=== PATIENT | female | born 1955 | race Caucasian/White ===

== ENCOUNTER 2017-05-21 09:08 | Day surgery (SDC) | payer OTHER ==
[2017-05-21] VITALS (7 sets, daily range): BP systolic 146–161; BP diastolic 62–74; PULSE 63–69; RESP 17–18; Ht 147.3 cm; Wt 69.0 kg
[~2017-05-21] VITALS: Ht 147.3 cm; Wt 69.0 kg
[~2017-05-21 09:08] MED LIST: CEPH-443 PO; CITROMA PO; DOCU-144 PO; LORA1TAB54 PO; MECL25TA2 PO; NAPR-688 PO; POLY17PO6 PO; PROPOFOL 200 MG INJ ONE; SIMV10TA PO
[2017-05-21] MEDS ORDERED: SOD CHLORIDE 0.9% 1,000 ML IV ONE (10:00)
[2017-05-21 10:40] LABS: BASOPHILS % 0.8 % (0.0-2.0); EOSINOPHILS # 0.1 10^3/ul (0.0-0.5); EOSINOPHILS % 1.6 % (0.0-7.0); HEMATOCRIT 38.4 % (37.0-47.0); HEMOGLOBIN 13.1 g/dl (12.0-16.0); LYMPHOCYTES # 1.4 10^3/ul (0.8-2.9); LYMPHOCYTES % 36.8 % (15.0-51.0); MEAN CORPUSCULAR HEMOGLOBIN 32.3 pg (29.0-33.0); MEAN CORPUSCULAR HGB CONC 34.1 g/dl (32.0-37.0); MEAN CORPUSCULAR VOLUME 94.8 fl (82.0-101.0); MEAN PLATELET VOLUME 9.3 fl (7.4-10.4); MONOCYTE # 0.4 10^3/ul (0.3-0.9); MONOCYTES % 11.3 % (0.0-11.0); NEUTROPHIL # 1.8 10^3/ul (1.6-7.5); NEUTROPHILS % 49.2 % (39.0-77.0); PLATELET COUNT 273 10^3/UL (140-415); RED BLOOD COUNT 4.05 10^6/ul (4.20-5.40); RED CELL DISTRIBUTION WIDTH 12.6 % (11.5-14.5); WHITE BLOOD COUNT 3.7 10^3/ul (4.8-10.8)
[2017-05-21 10:58] LABS: INR 0.93; PROTIME 12.5 Sec (12.2-14.2)
[2017-05-21 10:59] LABS: ALBUMIN 4.1 g/dl (3.3-4.9); ALBUMIN/GLOBULIN RATIO 1.17; BILIRUBIN,INDIRECT 0.4 mg/dl (0-1.1); BILIRUBIN,TOTAL 0.4 mg/dl (0.2-1.3); PARTIAL THROMBOPLASTIN TIME 28.7 Sec (25.0-35.0); TOTAL PROTEIN 7.6 g/dl (6.1-8.1)
[2017-05-21 11:04] LABS: CALCIUM 9.3 mg/dl (8.4-10.2); CREATININE 0.67 mg/dl (0.44-1.00); POTASSIUM 3.9 mmol/L (3.5-5.1)
[2017-05-21] MEDS ORDERED: PROPOFOL 20 ML ONE (12:28)
[2017-05-21] MEDS ORDERED: ONDANSETRON 4 MG INJ ONE (12:28)
[2017-05-21] MEDS ORDERED: LIDOCAINE 100 MG SYRINGE ONE (12:28)
[2017-05-21] MEDS ORDERED: FENTAnyl 50 MCG/ML VIAL ONE (12:28)
[2017-05-21] MEDS ORDERED: KETOROLAC 30 MG INJ ONE (12:29)
[2017-05-21] MEDS ORDERED: ACETAMINOPHEN 1000MG/100ML IV 100 ML ONE (12:42)
[2017-05-21] MEDS ORDERED: LIDOCAINE 2%/EPI 30 ML INJ ONE (12:49)
[2017-05-21] MEDS ORDERED: LIDOCAINE 2%/EPI MPF (SDV) 20 ML VIAL INJ ONE (12:50)
--- NOTE | 2017-05-21 14:20 | RADRPT ---
PROCEDURE: XR Chest. CLINICAL INDICATION: Shortness of breath. Breast cancer. TECHNIQUE: Single frontal view. COMPARISON: None. FINDINGS: There is a tunneled right internal jugular vein implanted port central venous catheter with the tip in the lower superior vena cava. The lungs are clear. The heart size is normal. There is no pleural effusion. There is no pneumothorax. IMPRESSION: 1. Central line noted. 2. Clear lungs. RPTAT: QQ .Ramesh Ty MD, MD Date Time Electronically viewed and signed by .Ramesh Ty MD, MD on 05/21/2017 14:20 .R/
--- NOTE | 2017-05-21 19:05 | RADRPT ---
Vent Rate: 69 bpm RR Interval: 0 msec VA Interval: 156 msec QRS Duration: 68 msec QT Interval: 464 msec QTC Interval: 497 msec P-R-T Harper: 46 - 35 - 50 degrees Normal sinus rhythm Prolonged QT Abnormal ECG Electronically Signed By: Spike Del Valle [id number]
--- NOTE | 2017-05-22 02:52 | OPR ---
DATE OF OPERATION: 05/21/2017 SURGEON: Grabiel Lopez MD SENIOR STATISTICIAN: Penny Wolff MD PREOPERATIVE DIAGNOSIS: History of left breast cancer; need for Port-A-Cath removal. POSTOPERATIVE DIAGNOSIS: History of left breast cancer; need for Port-A-Cath removal. PROCEDURE: Removal of Port-A-Cath from the right subclavian location. ANESTHESIA: Intravenous sedation. ANESTHESIOLOGIST: Jacoby Macedo MD INDICATIONS FOR PROCEDURE: The patient is a 61-year-old female who I had previously treated for left breast cancer. She successfully completed her treatment and requested removal of her Port-A-Cath. She consented and was scheduled for surgery. DESCRIPTION OF PROCEDURE: The patient was brought to the operating theater, placed under IV sedation. The right subclavian region was prepped and draped in the usual sterile fashion. The area around the port was then infiltrated with 2 percent lidocaine local anesthetic with epinephrine. The previous surgical incisional scar was incised with a combination of Bovie electrocautery and sharp dissection. The port was dissected from its subcutaneous location and gently removed while pressure was held in the right infraclavicular location. The port appeared grossly intact and it was sent for gross analysis to the Pathology Department to confirm it was intact. The wound was irrigated and minimal bleeding was controlled with cautery, and the skin was then reapproximated with 4-0 Vicryl in subcuticular fashion. Benzoin and Steri-Strips were applied. The patient tolerated procedure well. The estimated blood loss was 5 mL. There were no complications and the patient was transported in stable condition to the recovery room. Dictated By: Grabiel Lopez MD /miguel angel/luis angel /Document#: [id number]
== END 2017-05-21 14:30 | disposition home or self-care (01) ==
LOC: SDS 09:08
PROVIDERS: ATTEND Surgery Surgical Oncology
DX: Z45.2 Encounter for adjustment and management of vascular access device (principal); Z85.3 Personal history of malignant neoplasm of breast; I10 Essential (primary) hypertension; J45.909 Unspecified asthma, uncomplicated
CPT/HCPCS: 36590; 71010; 80053; 85025; 85610; 85730; 88300; 93005; J0131; J1885; J2001; J3010; Z7512; Z7610; J2405

== ENCOUNTER 2018-03-04 18:37 | Emergency (ER) | END 2018-03-04 18:57 | disposition home or self-care (01) ==

== ENCOUNTER 2019-07-01 08:56 | Emergency (ER) | payer SELFPAY ==
[~2019-07-01] VITALS: Ht 149.9 cm; Wt 62.0 kg
[~2019-07-01 08:56] MED LIST changes: +ALBU18HF INHALATION; +AZIT250T PO; +BENZ200C68 PO; -CEPH-443 PO; -CITROMA PO; -DOCU-144 PO; +GLYC1SUP92 PR; +KETO5DRO71 OP; -LORA1TAB54 PO; -MECL25TA2 PO; -NAPR-688 PO; -PROPOFOL 200 MG INJ ONE; -SIMV10TA PO
[2019-07-01 09:04] VITALS: BP 125/64; PULSE 65; RESP 16; Ht 149.9 cm; Wt 62.0 kg
[2019-07-01] MEDS ORDERED: MAGNESIUM CITRATE 300 ML BTL PO ONE (09:30)
== END 2019-07-01 10:12 | disposition home or self-care (01) ==
LOC: E/R 08:56
DX: K59.00 Constipation, unspecified (principal); Z85.3 Personal history of malignant neoplasm of breast
CPT/HCPCS: 99282